=== PATIENT | male | born 1995 | race African-American/Black ===

== ENCOUNTER 2021-02-26 18:17 | Emergency (ER) | payer OTHER, SELFPAY | END 2021-02-26 19:37 | disposition home or self-care (01) | LOC: NAV ERS 18:17 | DX: S06.0X1A Concussion with loss of consciousness of 30 minutes or less, initial encounter (principal); S63.502A Unspecified sprain of left wrist, initial encounter; S16.1XXA Strain of muscle, fascia and tendon at neck level, initial encounter; F17.210 Nicotine dependence, cigarettes, uncomplicated; V87.8XXA Person injured in other specified noncollision transport accidents involving motor vehicle (traffic), initial encounter | CPT/HCPCS: 70450; 72125 ==

== ENCOUNTER 2021-04-12 08:14 | Emergency (ER) | payer SELFPAY ==
[2021-04-13 02:26] LABS: SARS-CoV-2 PCR by NAA Not Detected (NotDetected)
== END 2021-04-12 09:10 | disposition home or self-care (01) ==
LOC: NAV ERS 08:14
DX: Z20.822 Contact with and (suspected) exposure to COVID-19 (principal)
CPT/HCPCS: 99283; U0003; U0005